=== PATIENT | male | born 1965 | race Caucasian/White ===

== ENCOUNTER 2022-09-24 06:33 | Day surgery (SDC) | payer BC ==
[~2022-09-24 06:33] MED LIST: Lactated Ringers 1,000 ML IV SCH; cefOXitin 2 GM in Premix Bag 1 BAG IV ONE
[2022-09-24] MEDS ORDERED: Ondansetron 4 MG/2 ML SDV IVPUSH PRN (06:57)
[2022-09-24] MEDS ORDERED: HYDROmorphone 1 MG/ML Syringe IVPUSH PRN (06:57)
[2022-09-24] MEDS ORDERED: Morphine 2 MG/ML SYRINGE IVPUSH PRN ×2 (06:57→09:17)
[2022-09-24] MEDS ORDERED: Albuterol 0.083% 2.5 MG/3 ML Neb Soln NEB PRN (06:57)
[2022-09-24] MEDS ORDERED: Metoclopramide 10 MG/2 ML SDV IVPUSH PRN (06:57)
[2022-09-24] MEDS ORDERED: fentaNYL 50 MCG/ML SDV IVPUSH PRN (06:57)
[2022-09-24] MEDS ORDERED: Naloxone 0.4 MG/ML SDV IVPUSH PRN (06:57)
[2022-09-24] MEDS ORDERED: fentaNYL 250 MCG/5 ML SDV ONE (07:31)
[2022-09-24] MEDS ORDERED: Propofol 200 MG/20 ML SDV ONE (07:31)
[2022-09-24] MEDS ORDERED: Bupivacaine 0.5% 30 ML SDV ONE (07:33)
[2022-09-24] MEDS ORDERED: Ropivacaine 0.5% 5 MG/ML 30 ML SDV ONE (07:34)
[2022-09-24] MEDS ORDERED: fentaNYL 100 MCG/2 ML SDV ONE ×2 (07:35→08:38)
[2022-09-24] MEDS ORDERED: Famotidine 20 MG/2 ML SDV ONE (07:35)
[2022-09-24] MEDS ORDERED: Ondansetron 4 MG/2 ML SDV ONE (08:26)
[2022-09-24] MEDS ORDERED: Phenylephrine 1% 10 MG/ML SDV ONE (08:26)
[2022-09-24] MEDS ORDERED: Sugammadex Sodium 200 MG/2 ML VIAL ONE (08:26)
[2022-09-24] MEDS ORDERED: cefOXitin 1 GM Vial ONE (08:26)
[2022-09-24] MEDS ORDERED: Rocuronium Bromide 50 MG/5 ML Syringe ONE (08:26)
[2022-09-24] MEDS ORDERED: Dexamethasone 4 MG/ML 5 ML MDV ONE (08:26)
[2022-09-24] MEDS ORDERED: Ketorolac 30 MG/ML SDV ONE (08:56)
[2022-09-24] MEDS ORDERED: HYDROmorphone 2 MG/ML Syringe ONE (08:59)
[2022-09-24] MEDS ORDERED: Acetaminophen/HYDROcodone 325-5 MG Tab PO PRN ×2 (09:17→09:33)
[2022-09-24] MEDS ORDERED: Lactated Ringers 1,000 ML IV SCH (09:30)
== END 2022-09-24 10:55 | disposition home or self-care (01) ==
LOC: MW.SDS 06:33
PROVIDERS: ATTEND Surgery
DX: K81.1 Chronic cholecystitis (principal); K82.8 Other specified diseases of gallbladder; F17.290 Nicotine dependence, other tobacco product, uncomplicated; E66.9 Obesity, unspecified; Z79.899 Other long term (current) drug therapy; Z20.822 Contact with and (suspected) exposure to COVID-19; Z98.890 Other specified postprocedural states; Z68.32 Body mass index [BMI] 32.0-32.9, adult
CPT/HCPCS: 47562; J0131; J0694; J1100; J1170; J1885; J2370; J2405; J2704; J2795; J3010; J3490; J7030; J7120

== ENCOUNTER 2022-11-22 13:37 | Emergency (ER) | payer BC | END 2022-11-22 18:10 | disposition home or self-care (01) | LOC: MW.ED 13:37 | DX: I10 Essential (primary) hypertension (principal); E66.9 Obesity, unspecified; Z68.31 Body mass index [BMI] 31.0-31.9, adult | CPT/HCPCS: 93005; 93010; 99283 ==